=== PATIENT | female | born 1955 | race Caucasian/White ===

== ENCOUNTER 2019-01-05 17:03 | Inpatient (IN) ==
[2019-01-05] MEDS ORDERED: *HR* HYDROmorphone (PF) 1 MG/ML SYRINGE ONE (17:27)
[2019-01-05] MEDS ORDERED: *HR* HYDROmorphone (PF) 1 MG/ML SYRINGE IVP STA (17:32)
[2019-01-05] MEDS ORDERED: Ondansetron 4 MG/2 ML VIAL IVP STA (17:32)
[2019-01-05] MEDS ORDERED: KETAMINE IVPB STA (17:33)
[2019-01-05] MEDS ORDERED: SODIUM CHLORIDE 0.9% IVPB STA (17:33)
--- NOTE | 2019-01-05 17:37 | Emergency Department Note ---
Disposition Clinical Impression: Fracture of femur Qualifiers: Encounter type: initial encounter Femur location: neck, unspecified portion Fracture type: closed Laterality: left Qualified Code(s): S72.002A - Fracture of unspecified part of neck of left femur, initial encounter for closed fracture Disposition: Admitted As Inpatient Condition: Good Forms: ED Satisfaction Letter Time of Disposition: 20:04 General Adult HPI - General Chief complaint: ED Extremity Injury, Lower Stated complaint: hip pain Time Seen by Provider: 01/05/19 17:09 Nursing Notes Reviewed: Yes Vital Signs Reviewed: Yes - History of Present Illness HPI Narrative: Female patient percent tumor department after sustaining a ground-level fall. She was walking her dogs and the one dog and drug her. She denies striking her head. She denies any loss of consciousness. She states she is not on any blood thinners. She reports left lower extremity pain. States it started immediately after the fall. Does have a history of surgery to her lower back. Reports some low back pain as well. Patient came in on a long spine board with a sheet tied around her hips. Pain Scale: 8 - Related Data Home Medications Medication Instructions Recorded Confirmed Estradiol [Estrace] 0.5 mg PO QAM 06/15/15 07/05/15 Levothyroxine [Synthroid] 125 mcg PO QAM 06/15/15 07/05/15 Losartan [Cozaar] 100 mg PO QAM 06/15/15 07/05/15 TraZODone 50 mg PO HS 06/15/15 07/05/15 BuPROPion [Wellbutrin] 100 mg PO 05/20/18 Fluticasone Propionate Nasal 50 mcg NS 05/20/18 [Flonase] Wellbutrin 05/20/18 Previous Rx's Medication Instructions Recorded Acetaminophen w/Cod 300-30 mg 1 tab PO Q6HR PRN #33 tablet 07/05/15 [Tylenol w/Codeine #3] Esomeprazole Magnesium [Nexium] 20 mg PO DAILY #30 capsule. 11/23/17 diazePAM [Valium] 5 mg PO BID PRN 3 Days #7 tablet 12/08/17 Dicyclomine [Bentyl] 10 mg PO QID PRN #30 capsule 07/01/18 Allergies Allergy/AdvReac Type Severity Reaction Status Date / Time clonazepam [From Klonopin] Allergy Rash Verified 05/07/18 09:42 atorvastatin [From Lipitor] AdvReac Muscle Pain Verified 05/07/18 09:42 moxifloxacin [From Avelox] AdvReac Anxiety Verified 05/07/18 09:42 All systems ED: reviewed and negative except as stated. Review of Systems: As Per HPI Constitutional: Denies: fever Cardiovascular: Denies: chest pain Respiratory: Denies: cough, dyspnea Gastrointestinal: Denies: abdominal pain, nausea, vomiting, diarrhea Musculoskeletal: Reports: back pain, other (Left leg pain) Integumentary: Reports: abrasion (The left lower external) Neurological: Denies: headache Past Medical History - Past Medical History Attestation: Yes The following information was validated with the patient. Source: patient Medical history: Reports: hyperlipidemia, hypertension, osteoporosis, thyroid disease, other Surgical history: Reports: breast surgery, cholecystectomy, hysterectomy, sinus surgery, thyroidectomy, other Psychiatric history: Reports: anxiety, depression, panic disorder - Social History Smoking Status: Never smoker Smokeless Tobacco Status: No Alcohol use: Reports: none Drug use: Reports: none Physical Exam - General General appearance: alert, in no apparent distress - Head Head exam: atraumatic, normocephalic, normal inspection - Eye Eye exam: Present: normal appearance, PERRL, EOMI - ENT ENT exam: normal exam, normal oropharynx, mucous membranes moist - Neck Neck exam: Present: normal inspection, full ROM, trachea midline - Chest Chest inspection: Present: normal inspection, symmetric chest wall rise - Respiratory Respiratory exam: Present: normal lung sounds bilaterally. Absent: respiratory distress, accessory muscle use - Cardiovascular Cardiovascular exam: Present: regular rate, normal rhythm, normal heart sounds - Abdominal Exam Abdominal exam: Present: soft, Non-Tender. Absent: tenderness, distention, guarding, rebound, rigidity, organomegaly, Fraser's sign, Rovsing's sign, tenderness at McBurney's Point - Expanded Upper Extremity Exam Shoulder exam: Present: normal inspection, full ROM Arm exam: Present: full ROM, tenderness (Mild tenderness to the left elbow. No deformity noted. No ecchymosis.). Absent: deformity Elbow exam: Present: normal inspection, full ROM Forearm/Wrist exam: Present: normal inspection, full ROM Hand exam: Present: normal inspection, full ROM Vascular exam: Normal: capillary refill, radial pulse - Expanded Lower Extremity Exam Hip/Pelvis exam: Present: tenderness (Significant tenderness to the left hip.), deformity (To the proximal aspect of the left femur area.) Upper leg exam: Present: swelling (Proximal left femur), abrasion (Lateral left leg.) Knee exam: Present: tenderness (To palpation of left knee no swelling or crepitus noted. No deformity.). Absent: deformity Lower leg exam: Present: normal inspection, full ROM Ankle exam: Present: tenderness (To palpation of left ankle.) - Back Exam Back exam: Present: other (There are no step-offs or deformities noted to the cervical thoracic or lumbar spine. Patient does have some mild tenderness however to the lumbar region.) - Neurological Exam Neurological exam: Present: alert, oriented X3 - Psychiatric Psychiatric exam: Present: normal affect, normal mood - Skin Skin exam: Present: warm, dry, intact, normal color. Absent: rash, cyanosis, diaphoresis Course Course Narrative: On initial exam patient is alert and oriented 3 at this time. Denies any loss of consciousness. Mentating appropriately. Pupils are equal and reactive. No respirator distress this clear lung sounds bilaterally. Patient has strong pulses in all 4 extremities. Does have significant tenderness to palpation of the left hip and left femur area. There is what appears to be bony deformity of the proximal aspect of the left femur. Again she has good pulses and sensation distal to this extremity injury. Patient denies any pain to palpation over midline cervical and thoracic spine. She does have some tenderness to palpation of her high lumbar spine. There are no step-offs or deformity noted throughout her spinal exam. Again patient has significant pain to the left hip area. No ecchymosis noted at this time. No previous injury to this extremity. No other signs of trauma noted. Her abdomen is soft nontender nondistended. Patient states that she has had her tetanus shot within the past 3 years. - Reevaluation(s) Reevaluation #1: Patient with a right femoral neck fracture. No other acute signs of fractures. Patient mentating properly. We will perform a left femoral nerve block to help alleviate patient's pain and admit to the hospitalist. - Consultations Consultation #1: I spoke with Dr. Mark with orthopedics. He is requesting we admit to the [facility] and he does not pursue patient going to surgery tonight. Time: 19:57 Consultation #2: Dr Jain accepted Pt in stable condition. Time: 20:04 Vital Signs Temperature 99.2 F 01/05/19 17:06 Pulse Rate 76 01/05/19 17:06 Respiratory Rate 17 01/05/19 17:06 Blood Pressure 141/84 01/05/19 17:06 O2 Sat by Pulse Oximetry 98 01/05/19 17:06 Temperature 99.2 F 01/05/19 17:06 Pulse Rate 76 01/05/19 17:06 Respiratory Rate 17 01/05/19 17:06 Blood Pressure 141/84 01/05/19 17:06 O2 Sat by Pulse Oximetry 98 01/05/19 17:06 Oxygen Delivery Oxygen Delivery Room Air Procedures - Nerve Block Nerve Block 1 Consent Obtained: verbal consent Local Anesthetic: lidocaine 1%, bupivacaine 0.5% Amount of anesthesia used (mL): 10 Side: left Nerve Blocks: femoral Procedure Successful: Yes Patient Tolerated Procedure: well Complications: none Additional Comments: Supervised by Dr. kerr. Procedure tolerated well. No complications noted. We did have to advance the needle with the probe in a transverse plane secondary to patient's positioning. Medical Decision Making - Medical Records Medical records reviewed: Yes I reviewed the patient's medical records. - Lab Data Lab results reviewed: Yes I reviewed the patient's lab results. Result diagrams: 01/05/19 18:46 Lab Results 01/05/19 Range/Units 18:46 WBC 7.2 (4.3-11.1) K/mcL RBC 4.28 (3.82-4.97) M/mcL Hgb 13.1 (11.5-15.4) g/dL Hct 38.8 (35.3-44.9) % MCV 90.7 (83.0-100.0) fL MCH 30.6 (28.0-33.3) pg MCHC 33.8 (31.6-35.5) g/dL RDW 12.9 (11.5-14.5) % Plt Count 197 (140-400) K/mcL MPV 10.2 (9.4-12.4) fL Immature Gran % 0.3 (0-4) % Seg Neutrophils % 76.8 % Lymphocytes % 17.1 % Monocytes % 4.3 % Eosinophils % 1.1 % Basophils % 0.4 % Neutrophils # 5.5 (1.6-8.9) K/mcL Lymphocytes # 1.2 (0.6-4.6) K/mcL Monocytes # 0.3 (0.0-1.3) K/mcL Eosinophils # 0.1 (0.0-0.6) K/mcL Basophils # 0.0 (0.0-0.2) K/mcL - Radiology Data Radiology results reviewed: Yes I reviewed the patient's radiology results. Ankle X-Ray 01/05/19 17:28 IMPRESSION: Left femur: Suggestion of subcapital femoral neck fracture. Recommend dedicated radiographs of the left hip, or CT examination of the left hip if radiographs cannot be performed. Left knee: No acute abnormality. Left tibia and fibula: Mild swelling without fracture. Left ankle: Lateral soft tissue swelling without fracture. D/ / Hubert Oakes MD / Hubert Oakes MD Interpreting Provider: Hubert Oakes MD Femur X-Ray 01/05/19 17:28 IMPRESSION: Left femur: Suggestion of subcapital femoral neck fracture. Recommend dedicated radiographs of the left hip, or CT examination of the left hip if radiographs cannot be performed. Left knee: No acute abnormality. Left tibia and fibula: Mild swelling without fracture. Left ankle: Lateral soft tissue swelling without fracture. D/ / Hubert Oakes MD / Hubert Oakes MD Interpreting Provider: Hubert Oakes MD Knee X-Ray 01/05/19 17:28 IMPRESSION: Left femur: Suggestion of subcapital femoral neck fracture. Recommend dedicated radiographs of the left hip, or CT examination of the left hip if radiographs cannot be performed. Left knee: No acute abnormality. Left tibia and fibula: Mild swelling without fracture. Left ankle: Lateral soft tissue swelling without fracture. D/ / Hubert Oakes MD / Hubert Oakes MD Interpreting Provider: Hubert Oakes MD Lumbar Spine CT 01/05/19 17:28 IMPRESSION: No acute osseous abnormality on CT lumbar spine. Unchanged sequela from L3-L5 transpedicular spinal fixation, with slight anterolisthesis L4 on L5. Mild bilaterally symmetrical SI joint osteoarthritis. D/ / Roel Cali / Roel Cali Interpreting Provider: Roel Cali Pelvis CT 01/05/19 17:28 IMPRESSION: 1. Normal left hip alignment with an acute subcapital femoral neck fracture with mild impaction, displacement, and angulation. 2. No significant soft tissue hematoma. D/ / 01/05/2019 19:00:10 Jero Doe MD / carmina Interpreting Provider: Jero Doe MD Tibia/Fibula X-Ray 01/05/19 17:28
--- NOTE | 2019-01-05 17:38 | Emergency Department Note ---
Disposition Clinical Impression: Fracture of femur Qualifiers: Encounter type: initial encounter Femur location: neck, unspecified portion Fracture type: closed Laterality: left Qualified Code(s): S72.002A - Fracture of unspecified part of neck of left femur, initial encounter for closed fracture Disposition: Admitted As Inpatient Condition: Good Forms: ED Satisfaction Letter Time of Disposition: 20:04 General Adult HPI - General Chief complaint: ED Extremity Injury, Lower Stated complaint: hip pain Time Seen by Provider: 01/05/19 17:09 - History of Present Illness Pain Scale: 8 - Related Data Home Medications Medication Instructions Recorded Confirmed Estradiol [Estrace] 0.5 mg PO QAM 06/15/15 07/05/15 Levothyroxine [Synthroid] 125 mcg PO QAM 06/15/15 07/05/15 Losartan [Cozaar] 100 mg PO QAM 06/15/15 07/05/15 TraZODone 50 mg PO HS 06/15/15 07/05/15 BuPROPion [Wellbutrin] 100 mg PO 05/20/18 Fluticasone Propionate Nasal 50 mcg NS 05/20/18 [Flonase] Wellbutrin 05/20/18 Previous Rx's Medication Instructions Recorded Acetaminophen w/Cod 300-30 mg 1 tab PO Q6HR PRN #33 tablet 07/05/15 [Tylenol w/Codeine #3] Esomeprazole Magnesium [Nexium] 20 mg PO DAILY #30 capsule. 11/23/17 diazePAM [Valium] 5 mg PO BID PRN 3 Days #7 tablet 12/08/17 Dicyclomine [Bentyl] 10 mg PO QID PRN #30 capsule 07/01/18 Allergies Allergy/AdvReac Type Severity Reaction Status Date / Time clonazepam [From Klonopin] Allergy Rash Verified 05/07/18 09:42 atorvastatin [From Lipitor] AdvReac Muscle Pain Verified 05/07/18 09:42 moxifloxacin [From Avelox] AdvReac Anxiety Verified 05/07/18 09:42 Past Medical History - Past Medical History Medical history: Reports: hyperlipidemia, hypertension, osteoporosis, thyroid disease, other Surgical history: Reports: breast surgery, cholecystectomy, hysterectomy, sinus surgery, thyroidectomy, other Psychiatric history: Reports: anxiety, depression, panic disorder - Social History Smoking Status: Never smoker Smokeless Tobacco Status: No Alcohol use: Reports: none Drug use: Reports: none Physical Exam - General General appearance: alert, in no apparent distress Course Vital Signs Temperature 99.2 F 01/05/19 17:06 Pulse Rate 76 01/05/19 17:06 Respiratory Rate 17 01/05/19 17:06 Blood Pressure 141/84 01/05/19 17:06 O2 Sat by Pulse Oximetry 98 01/05/19 17:06 Temperature 99.2 F 01/05/19 17:06 Pulse Rate 80 01/05/19 20:24 Respiratory Rate 15 01/05/19 20:24 Blood Pressure 141/73 01/05/19 20:24 O2 Sat by Pulse Oximetry 98 01/05/19 20:24 Oxygen Delivery Oxygen Delivery Nasal Cannula Medical Decision Making - Lab Data Result diagrams: 01/05/19 18:46 01/05/19 18:46 Lab Results 01/05/19 01/05/19 Range/Units 18:46 18:46 WBC 7.2 (4.3-11.1) K/mcL RBC 4.28 (3.82-4.97) M/mcL Hgb 13.1 (11.5-15.4) g/dL Hct 38.8 (35.3-44.9) % MCV 90.7 (83.0-100.0) fL MCH 30.6 (28.0-33.3) pg MCHC 33.8 (31.6-35.5) g/dL RDW 12.9 (11.5-14.5) % Plt Count 197 (140-400) K/mcL MPV 10.2 (9.4-12.4) fL Immature Gran % 0.3 (0-4) % Seg Neutrophils % 76.8 % Lymphocytes % 17.1 % Monocytes % 4.3 % Eosinophils % 1.1 % Basophils % 0.4 % Neutrophils # 5.5 (1.6-8.9) K/mcL Lymphocytes # 1.2 (0.6-4.6) K/mcL Monocytes # 0.3 (0.0-1.3) K/mcL Eosinophils # 0.1 (0.0-0.6) K/mcL Basophils # 0.0 (0.0-0.2) K/mcL Sodium 142 (136-145) mEq/L Potassium 3.9 (3.5-5.1) mEq/L Chloride 104 (98-107) mEq/L Carbon Dioxide 30 H (23-29) mEq/L BUN 21 (8-23) mg/dL Creatinine 0.88 (0.60-1.20) mg/dL Est GFR ( Amer) > 60 (> 60) Est GFR (Non-Af Amer) > 60 (> 60) BUN/Creatinine Ratio 24 (6-26) Glucose 97 (70-105) mg/dL Calculated Osmolality 297 (280-300) Calcium 8.6 (8.6-10.3) mg/dL Attestation Statement - Attestation Attestation: I examined this patient and my medical decision-making was reviewed with the Resident Physician. I agree with the documented findings, disposition and treatment plan as described except to the extent set forth below. Patient presents after a fall and being dragged by her dog. Significant pain to her hip and proximal femur. Also is tender at the thoracolumbar junction and at the lumbosacral junction. No step-off or crepitus. Meets NEXUS criteria for clinical C-spine clearance, and suspicion for cervical spine injury is low based on mechanism. No other abnormal findings on exam. I was present for Dr. Pope' ultrasound guided nerve block.
[2019-01-05] MEDS ORDERED: Lidocaine -MPF 1% 5 ML AMPUL INFILT STA (19:23)
[2019-01-05 19:46] LABS: Basophils % 0.4 %; Eosinophils # 0.1 K/mcL (0.0-0.6); Eosinophils % 1.1 %; Hematocrit 38.8 % (35.3-44.9); Hemoglobin 13.1 g/dL (11.5-15.4); Immature Granulocytes % 0.3 % (0-4); Lymphocytes # 1.2 K/mcL (0.6-4.6); Lymphocytes % 17.1 %; Mean Corpuscular HGB Conc 33.8 g/dL (31.6-35.5); Mean Corpuscular Hemoglobin 30.6 pg (28.0-33.3); Mean Corpuscular Volume 90.7 fL (83.0-100.0); Mean Platelet Volume 10.2 fL (9.4-12.4); Monocytes # 0.3 K/mcL (0.0-1.3); Monocytes % 4.3 %; Neutrophils # 5.5 K/mcL (1.6-8.9); Platelet Count 197 K/mcL (140-400); Red Blood Count 4.28 M/mcL (3.82-4.97); Red Cell Distribution Width 12.9 % (11.5-14.5); Segmented Neutrophils % 76.8 %; White Blood Count 7.2 K/mcL (4.3-11.1)
[2019-01-05 20:03] LABS: BUN/Creatinine Ratio 24 (6-26); Blood Urea Nitrogen 21 mg/dL (8-23); Calcium 8.6 mg/dL (8.6-10.3); Carbon Dioxide 30 mEq/L (23-29); Chloride 104 mEq/L (98-107); Glucose 97 mg/dL (70-105); Osmolality,Calculated 297 (280-300); Potassium 3.9 mEq/L (3.5-5.1); Sodium 142 mEq/L (136-145); eGFR For African Americans > 60 (> 60); eGFR For Non-African Americans > 60 (> 60)
--- NOTE | 2019-01-05 21:10 | Internal Med History&Physical ---
Date of Encounter: 01/05/19 Time of Encounter: 21:10 Internal Medicine - H&P: HPI Chief complaint: Fall History of present illness: Ms. Song is a 63 year old female who presented to the ER after she sustained a fall without reported loss of consciousness. The patient presented with severe left lower extremity pain that started immediately after she sustained a fall. The patient was evaluated by the ER and imaging study was suggestive of acute subcapital femoral neck fracture with mild impaction, displacement, and angulation. He was consulted and their questions the patient will be admitted to the hospitalist service, we will see the patient in a.m. for further evaluation and management Past Med Surg Social Fam HX - Past Medical History Medical history: hyperlipidemia, hypertension, osteoporosis, thyroid disease, other Additional medical history: sleep apnea Psychiatric history: anxiety, depression, panic disorder - Past Surgical History Surgical History: breast surgery, cholecystectomy, hysterectomy, sinus surgery, thyroidectomy, other Additional surgical history: back - Social History Smoking Status: Never smoker Smokeless Tobacco Status: No Alcohol use: none Drug use: none - Family History Mother Hx Family Cardiac Disorders: Yes (htn) Hx Family Cancer: Yes (lung) Father Hx Family Cardiac Disorders: Yes (heart attack htn) Internal Medicine - H&P: Meds diazePAM [Valium] 5 mg PO BID PRN 3 Days #7 tablet 12/08/17 [Rx] BuPROPion SR (12 HR) [Wellbutrin SR] 200 mg PO QAM #0 05/20/18 [History] Escitalopram [Lexapro] 20 mg PO DAILY 01/05/19 [History] amLODIPine [Norvasc] 10 mg PO DAILY 01/05/19 [History] Buspirone HCl [Buspar] 22.5 mg PO DAILY 01/07/19 [History] Levothyroxine Sodium 112 mcg PO QAM 01/07/19 [History] Trazodone HCl 100 mg PO HS PRN 01/07/19 [History] Allergy/AdvReac Type Severity Reaction Status Date / Time clonazepam [From Klonopin] Allergy Anxiety Verified 01/07/19 10:20 atorvastatin [From Lipitor] AdvReac See Verified 01/07/19 10:20 Comments moxifloxacin [From Avelox] AdvReac Rash Verified 01/07/19 10:20 All Systems PM: A 10-system review of systems was performed and is negative for pertinent findings except as documented above in the HPI. - Constitutional Constitutional: no chills, no fever(s), no night sweats - EENT Eyes: no change in vision, no discharge, no pain, no photophobia Ears: no ear discharge, no ear pain, no tinnitus Nose, mouth and throat: no dysphagia, no nasal discharge, no neck pain, no sore throat - Cardiovascular Cardiovascular ROS IM: no chest pain, no diaphoresis, no dyspnea, no lightheadedness, no palpitations, no syncope - Respiratory Respiratory: no cough, no dyspnea, no wheezing, no excessive phlegm production - Gastrointestinal Gastrointestinal: no abdominal pain, no diarrhea, no hematemesis, no hematoch ezia, no melena, no nausea, no vomiting - Constitutional Vitals: Temp Pulse Resp BP Pulse Ox 99.2 F 80 15 141/73 98 01/05/19 17:06 01/05/19 20:24 01/05/19 20:24 01/05/19 20:24 01/05/19 20:24 General appearance: Present: A&O X 3 Exam: ` - Head Head exam: Present: atraumatic, normocephalic - Neck Neck exam general surgery: Present: supple, trachea midline. Absent: lymphadenopathy - Respiratory Respiratory exam: Present: CTAB. Absent: accessory muscle use, rales, rhonchi, wheezes - Cardiovascular Cardiovascular exam: Present: RRR, +S1, +S2. Absent: diastolic murmur, gallop, rubs, systolic murmur - GI/Abdominal GI/Abdominal exam: Present: normal bowel sounds, soft, no peritoneal signs. Absent: distended, tenderness - Extremities Exam Extremities exam: Present: warm, radial pulses palpable and symmetrical. Absent: calf tenderness, cyanotic, pedal edema Internal Med - H&P Results - Labs CBC & Chem 7: 01/07/19 04:17 01/07/19 04:17 Labs: Short CBC 01/05/19 Range/Units 18:46 WBC 7.2 (4.3-11.1) K/mcL Hgb 13.1 (11.5-15.4) g/dL Hct 38.8 (35.3-44.9) % Plt Count 197 (140-400) K/mcL Neutrophils # 5.5 (1.6-8.9) K/mcL BMP 01/05/19 18:46 Sodium 142 Potassium 3.9 Chloride 104 Carbon Dioxide 30 H BUN 21 Creatinine 0.88 Glucose 97 Calcium 8.6 - Impressions ITS Impressions Ankle X-Ray 01/05/19 17:28 IMPRESSION: Left femur: Suggestion of subcapital femoral neck fracture. Recommend dedicated radiographs of the left hip, or CT examination of the left hip if radiographs cannot be performed. Left knee: No acute abnormality. Left tibia and fibula: Mild swelling without fracture. Left ankle: Lateral soft tissue swelling without fracture. D/ / Hubert Oakes MD / Hubert Oakes MD Interpreting Provider: Hubert Oakes MD Femur X-Ray 01/05/19 17:28 IMPRESSION: Left femur: Suggestion of subcapital femoral neck fracture. Recommend dedicated radiographs of the left hip, or CT examination of the left hip if radiographs cannot be performed. Left knee: No acute abnormality. Left tibia and fibula: Mild swelling without fracture. Left ankle: Lateral soft tissue swelling without fracture. D/ / Hubert Oakes MD / Hubert Oakes MD Interpreting Provider: Hubert Oakes MD Knee X-Ray 01/05/19 17:28 IMPRESSION: Left femur: Suggestion of subcapital femoral neck fracture. Recommend dedicated radiographs of the left hip, or CT examination of the left hip if radiographs cannot be performed. Left knee: No acute abnormality. Left tibia and fibula: Mild swelling without fracture. Left ankle: Lateral soft tissue swelling without fracture. D/ / Hubert Oakes MD / Hubert Oakes MD Interpreting Provider: Hubert Oakes MD Lumbar Spine CT 01/05/19 17:28 IMPRESSION: No acute osseous abnormality on CT lumbar spine. Unchanged sequela from L3-L5 transpedicular spinal fixation, with slight anterolisthesis L4 on L5. Mild bilaterally symmetrical SI joint osteoarthritis. D/ / Roel Cali / Roel Cali Interpreting Provider: Roel Cali Pelvis CT 01/05/19 17:28 IMPRESSION: 1. Normal left hip alignment with an acute subcapital femoral neck fracture with mild impaction, displacement, and angulation. 2. No significant soft tissue hematoma. D/ / 01/05/2019 19:00:10 Jero Doe MD / carmina Interpreting Provider: Jero Doe MD Tibia/Fibula X-Ray 01/05/19 17:28 IMPRESSION: Left femur: Suggestion of subcapital femoral neck fracture. Recommend dedicated radiographs of the left hip, or CT examination of the left hip if radiographs cannot be performed. Left knee: No acute abnormality. Left tibia and fibula: Mild swelling without fracture. Left ankle: Lateral soft tissue swelling without fracture. D/ / Hubert Oakes MD / Hubert Oakes MD Interpreting Provider: Hubert Oakes MD - Assessment and Plan (1) Fracture of femur Current Visit: Yes Status: Acute Assessment and plan: Orth was consulted and they will see the patient in a.m. for further evaluation and management Qualifiers: Encounter type: initial encounter Femur location: neck, unspecified portion Fracture type: closed Laterality: left Qualified Code(s): S72.002A - Fracture of unspecified part of neck of left femur, initial encounter for closed fracture (2) DVT prophylaxis Current Visit: Yes Status: Acute Assessment and plan: We will start the patient on heparin 5000 bid (3) Hypertension Current Visit: Yes Status: Acute Assessment and plan: We will continue antihypertensive regimen, continue to monitor blood pressure and adjust regimen accordingly if indicated Qualifiers: Qualified Code(s): I10 - Essential (primary) hypertension (4) Hyperlipidemia Current Visit: Yes Status: Acute Assessment and plan: We will continue home statin Qualifiers: Qualified Code(s): E78.5 - Hyperlipidemia, unspecified (5) Hypothyroidism Current Visit: Yes Status: Acute Assessment and plan: we will continue home thyroxine Qualifiers: Qualified Code(s): E03.9 - Hypothyroidism, unspecified - Time Spent With Patient Total time spent is greater than 50% in coordination of care (as documented) at patient's floor/unit and/or counseling patient:
[2019-01-05] MEDS ORDERED: *HR* HYDROmorphone (PF) 1 MG/ML SYRINGE IVP ONE (21:32)
[2019-01-06] MEDS ORDERED: Naloxone 0.4 MG/ML INJ IVP PRN ×2 (00:28→17:37)
[2019-01-06] MEDS ORDERED: *HR* HYDROcodone/Acet 5/325 mg TABLET PO PRN (00:28)
[2019-01-06] MEDS ORDERED: Ondansetron 4 MG/2 ML VIAL IVP PRN ×2 (00:28→17:37)
[2019-01-06] MEDS: 0.9 % Sodium Chloride 1,000 ML IVC SCH ×2 (01:01→08:29)
[2019-01-06] MEDS: *HR* HYDROmorphone (PF) 1 MG/ML SYRINGE IVP PRN ×4 (01:01→17:00)
[2019-01-06 01:36] LABS: Bilirubin,Urine Negative (Negative); Blood,Urine Negative (Negative); Clarity,Urine Cloudy (Clear); Color,Urine Yellow (Yellow); Glucose,Urine (UA) Normal (Normal); Ketones,Urine Negative (Negative); Leukocyte Esterase,Urine Negative (Negative); Nitrite,Urine Negative (Negative); Protein,Urine Negative (Neg-Trace); Specific Gravity,Urine 1.016 (1.010-1.025); Urobilinogen,Urine Normal (Normal)
[2019-01-06 01:37] LABS: Bacteria,Urine None Seen per hpf (None-Few); Hyaline Casts,Urine Few per lpf (None-Few); Squamous Epithelial Cell,Urine Many per lpf (None-Few); WBC,Urine 0-3 per hpf (0-3)
[2019-01-06 01:52] LABS: Mucus,Urine Moderate (Few); RBC,Urine 0-3 per hpf (0-3)
[2019-01-06] MEDS ORDERED: diazePAM 5 MG TABLET PO PRN ×2 (04:04→17:37)
[2019-01-06] MEDS ORDERED: *HR* Acetaminophen w/Cod 300-30 mg 1 TAB TABLET PO PRN (04:04)
[2019-01-06 05:00] LABS: Basophils % 0.3 %; Eosinophils # 0.1 K/mcL (0.0-0.6); Eosinophils % 0.9 %; Hematocrit 37.7 % (35.3-44.9); Hemoglobin 12.4 g/dL (11.5-15.4); Immature Granulocytes % 0.4 % (0-4); Lymphocytes # 0.7 K/mcL (0.6-4.6); Lymphocytes % 8.6 %; Mean Corpuscular HGB Conc 32.9 g/dL (31.6-35.5); Mean Corpuscular Hemoglobin 30.2 pg (28.0-33.3); Mean Corpuscular Volume 91.7 fL (83.0-100.0); Monocytes # 0.2 K/mcL (0.0-1.3); Monocytes % 2.9 %; Neutrophils # 6.7 K/mcL (1.6-8.9); Platelet Count 164 K/mcL (140-400); Red Blood Count 4.11 M/mcL (3.82-4.97); Red Cell Distribution Width 12.8 % (11.5-14.5); Segmented Neutrophils % 86.9 %; White Blood Count 7.7 K/mcL (4.3-11.1)
[2019-01-06 05:07] LABS: Prothrombin Time 11.7 Seconds (9.4-12.1)
[2019-01-06 05:09] LABS: Activated Partial Thrombo Time 26.8 Seconds (26.0-36.0)
[2019-01-06 05:18] LABS: Alanine Aminotransferase 91 Units/L (7-52); Albumin 3.8 g/dL (3.5-5.7); Albumin/Globulin Ratio 1.8 (1.1-2.2); Alkaline Phosphatase 85 Units/L (34-104); Aspartate Amino Transferase 136 Units/L (13-39); BUN/Creatinine Ratio 20 (6-26); Bilirubin,Total 1.3 mg/dL (0.3-1.0); Blood Urea Nitrogen 17 mg/dL (8-23); Calcium 8.6 mg/dL (8.6-10.3); Carbon Dioxide 31 mEq/L (23-29); Chloride 103 mEq/L (98-107); Chol/HDL Ratio 2.6 (0-4.9); Cholesterol 157 mg/dL (< 200); Globulin 2.1 g/dL (2.4-3.5); Glucose 118 mg/dL (70-105); HDL Cholesterol 61 mg/dL (40-59); LDL Cholesterol,Calculated 78 mg/dL (0-99); Magnesium 1.8 mg/dL (1.6-2.6); Osmolality,Calculated 289 (280-300); Phosphorous 3.1 mg/dL (2.7-4.5); Potassium 4.8 mEq/L (3.5-5.1); Sodium 138 mEq/L (136-145); Total Protein 5.9 g/dL (6.4-8.9); Triglycerides 90 mg/dL (< 150); eGFR For African Americans > 60 (> 60); eGFR For Non-African Americans > 60 (> 60)
--- NOTE | 2019-01-06 07:40 | Orthopedic Consult Note ---
Date of Encounter: 01/06/19 Time of Encounter: 07:36 History of Present Illness Chief complaint: Left hip pain HPI: Ms. 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 She had immediate left hip pain and was able to ambulate. She was brought to [facility] x-rays and CT scan revealed evidence of a left femoral neck fracture. She is admitted for definitive management. Patient denies any other injuries. Denies neurovascular complaints. I reviewed the patient's completed history and physical examination as well as the medical record. Pertinent orthopedic examination reveals no significant shortening or external rotation. Patient does rest with a slightly hip and knee flexed position. Distal neurosensory exam is normal. X-rays and CT scan reveal a minimally displaced, valgus impacted left subcapital femoral neck fracture. Impression: Left femoral neck fracture, subcapital Recommendation: Discussed the treatment options at length with the patient. This could include observation with nonweightbearing, percutaneous fixation or hemiarthroplasty or even total hip arthroplasty. We discussed the risks and benefits of each approach. Discussed and recommended the percutaneous screw fixation approach as this would save her femoral head and minimize surgical intervention though there is a risk of nonunion or avascular necrosis and later surgical intervention required to correct this. Patient understands and agrees. We discussed all the potential risks and complications including bleeding, infection, blood clots, nerve injury, stiffness, malunion and nonunion as well as the possibility of leg length or rotational deformities. Patient has a signed informed consent for the surgery. Anticipate proceeding with surgery today when operating time is available. Thank you for allowing me to see and care for Mrs. Song. Sincerely, Vamsi Mark,DO Past Med Surg Social Fam HX - Past Medical History Medical history: hyperlipidemia, hypertension, osteoporosis, thyroid disease, other Additional medical history: sleep apnea Psychiatric history: anxiety, depression, panic disorder - Past Surgical History Surgical History: breast surgery, cholecystectomy, hysterectomy, sinus surgery, thyroidectomy, other Additional surgical history: back - Social History Smoking Status: Never smoker Smokeless Tobacco Status: No Alcohol use: none Drug use: none - Family History Mother Hx Family Cardiac Disorders: Yes (htn) Hx Family Cancer: Yes (lung) Father Hx Family Cardiac Disorders: Yes (heart attack htn) Medications and Allergies Levothyroxine [Synthroid] 125 mcg PO QAM 06/15/15 [History] TraZODone 50 mg PO HS 06/15/15 [History] Acetaminophen w/Cod 300-30 mg [Tylenol w/Codeine #3] 1 tab PO Q6HR PRN #33 tablet 07/05/15 [Rx] diazePAM [Valium] 5 mg PO BID PRN 3 Days #7 tablet 12/08/17 [Rx] Wellbutrin 100 mg PO BID 05/20/18 [History] Buspirone HCl [Buspar] 22.5 mg PO BID 01/05/19 [History] Escitalopram [Lexapro] 20 mg PO DAILY 01/05/19 [History] Valsartan [Diovan] 160 mg PO DAILY 01/05/19 [History] amLODIPine [Norvasc] 10 mg PO DAILY 01/05/19 [History] Allergy/AdvReac Type Severity Reaction Status Date / Time clonazepam [From Klonopin] Allergy Rash Verified 05/07/18 09:42 atorvastatin [From Lipitor] AdvReac Muscle Pain Verified 05/07/18 09:42 moxifloxacin [From Avelox] AdvReac Anxiety Verified 05/07/18 09:42 All Systems Reviewed: The remainder of the systems were reviewed and are negative Physical Exam - Constitutional Vitals: Temp Pulse Resp BP Pulse Ox 98.4 F 67 16 138/67 95 01/06/19 06:39 01/06/19 06:39 01/06/19 06:39 01/06/19 06:39 01/06/19 06:39 Results - Labs Result Diagrams: 01/06/19 04:22 01/06/19 04:22 Labs: Abnormal lab results Carbon Dioxide 31 mEq/L (23-29) H 01/06/19 04:22 Glucose 118 mg/dL (70-105) H 01/06/19 04:22 1.3 mg/dL (0.3-1.0) H 01/06/19 04:22 AST 136 Units/L (13-39) H 01/06/19 04:22 ALT 91 Units/L (7-52) H 01/06/19 04:22 5.9 g/dL (6.4-8.9) L 01/06/19 04:22 2.1 g/dL (2.4-3.5) L 01/06/19 04:22 61 mg/dL (40-59) H 01/06/19 04:22 Cloudy (Clear) A 01/06/19 01:29 Ur Squamous Epith Cells Many per lpf (None-Few) H 01/06/19 01:29 Moderate (Few) H 01/06/19 01:29 H & H 01/05/19 01/06/19 Range/Units 18:46 04:22 Hgb 13.1 12.4 (11.5-15.4) g/dL Hct 38.8 37.7 (35.3-44.9) % All other labs normal. - Diagnostic results Hip AP/Lateral x-ray: image reviewed Hip CT: image reviewed Consult Discharge Plan - Plan Referrals: Kerry Oseguera, VAT OVERHAULER [Primary Care Provider] -
[2019-01-06] MEDS ORDERED: amLODIPine 5 MG TABLET PO SCH (09:00)
[2019-01-06] MEDS ORDERED: Valsartan 80 MG TABLET PO SCH (09:00)
[2019-01-06] MEDS ORDERED: Acetaminophen IV 1,000 MG/100 ML INFUS..BTL IVPB ONE (10:29)
[2019-01-06] MEDS ORDERED: *HR* OxyCODONE Immed Rel 5 MG TABLET PO PRN ×2 (11:50)
--- NOTE | 2019-01-06 13:24 | Internal Med Progress Note ---
Hospitalist Progress Note - Encounter Date of Encounter: 01/06/19 Time of Encounter: 10:15 - Subjective Interval History: Patient complains of a severe tension type headache. Pain in her left hip is well controlled. No vision changes. No focal weakness. She is scheduled to undergo surgery later today with percutaneous hip pinning. - Exam Vitals: Temp Pulse Resp BP Pulse Ox 98.2 F 73 16 142/68 96 01/06/19 11:00 01/06/19 11:00 01/06/19 11:00 01/06/19 11:00 01/06/19 11:00 Exam: General: Patient is alert, moderate distress, oriented x 3 ENT: Mucous membranes moist Respiratory: Good respiratory effort. Normal breath sounds. No wheezing or crackles. Cardiovascular: Regular rate and rhythm. s1 and s2 normal No clicks, rubs, gallops, or murmurs. No pedal edema Abdomen: Abdomen is soft, nontender. Bowel sounds are present Musculoskeletal: Left hip tenderness Skin: warm, dry, intact. Neuro: Alert oriented x 3 normal cranial nerves, no focal deficits - Assessment and Plan (1) Fracture of femur Current Visit: Yes Status: Acute (2) Hypertension Current Visit: Yes Status: Acute (3) Hyperlipidemia Current Visit: Yes Status: Acute (4) Hypothyroidism Current Visit: Yes Status: Acute (5) DVT prophylaxis Current Visit: Yes Status: Acute DVT Prophylaxis: Will place patient on subcutaneous Lovenox after surgery - Summary of Assessment and Plan Summary of Assessment and Plan: Acute subcapital left femur fracture: Continue supportive care. Pain control. Surgery scheduled for later today. Essential hypertension: Continue home medications. Continue to monitor blood pressure. Intractable headache: Tension-type. Symptomatic treatment. Hypothyroidism: Continue levothyroxine. Moderate risk for complications. - Time Spent with Patient Total time spent is greater than 50% in coordination of care (as documented) at patient's floor/unit and/or counseling patient: Internal Medicine: Result - Labs CBC & Chem 7: 01/06/19 04:22 01/06/19 04:22 Labs: Short CBC 01/05/19 01/06/19 Range/Units 18:46 04:22 WBC 7.2 7.7 (4.3-11.1) K/mcL Hgb 13.1 12.4 (11.5-15.4) g/dL Hct 38.8 37.7 (35.3-44.9) % Plt Count 197 164 (140-400) K/mcL Neutrophils # 5.5 6.7 (1.6-8.9) K/mcL BMP 01/05/19 01/06/19 18:46 04:22 Sodium 142 138 Potassium 3.9 4.8 Chloride 104 103 Carbon Dioxide 30 H 31 H BUN 21 17 Creatinine 0.88 0.83 Glucose 97 118 H Calcium 8.6 8.6 Liver Function 01/06/19 Range/Units 04:22 Total Bilirubin 1.3 H (0.3-1.0) mg/dL AST 136 H (13-39) Units/L ALT 91 H (7-52) Units/L Alkaline Phosphatase 85 (34-104) Units/L Albumin 3.8 (3.5-5.7) g/dL Urine 01/06/19 Range/Units 01:29 Urine Color Yellow (Yellow) Urine Clarity Cloudy A (Clear) Urine pH 6.0 (5.0-8.0) pH Units Ur Specific Willard 1.016 (1.010-1.025) Urine Protein Negative (Neg-Trace) mg/dL Urine Glucose (UA) Normal (Normal) mg/dL - ABG Interpretation ABG results: PT/INR, D-dimer PT 11.7 Seconds (9.4-12.1) 01/06/19 04:22 - Impressions Impressions Ankle X-Ray 01/05/19 17:28 IMPRESSION: Left femur: Suggestion of subcapital femoral neck fracture. Recommend dedicated radiographs of the left hip, or CT examination of the left hip if radiographs cannot be performed. Left knee: No acute abnormality. Left tibia and fibula: Mild swelling without fracture. Left ankle: Lateral soft tissue swelling without fracture. D/ / Hubert Oakes MD / Hubert Oakes MD Interpreting Provider: Hubert Oakes MD Femur X-Ray 01/05/19 17:28 IMPRESSION: Left femur: Suggestion of subcapital femoral neck fracture. Recommend dedicated radiographs of the left hip, or CT examination of the left hip if radiographs cannot be performed. Left knee: No acute abnormality. Left tibia and fibula: Mild swelling without fracture. Left ankle: Lateral soft tissue swelling without fracture. D/ / Hubert Oakes MD / Hubert Oakes MD Interpreting Provider: Hubert Oakes MD Knee X-Ray 01/05/19 17:28 IMPRESSION: Left femur: Suggestion of subcapital femoral neck fracture. Recommend dedicated radiographs of the left hip, or CT examination of the left hip if radiographs cannot be performed. Left knee: No acute abnormality. Left tibia and fibula: Mild swelling without fracture. Left ankle: Lateral soft tissue swelling without fracture. D/ / Hubert Oakes MD / Hubert Oakes MD Interpreting Provider: Hubert Oakes MD Lumbar Spine CT 01/05/19 17:28 IMPRESSION: No acute osseous abnormality on CT lumbar spine. Unchanged sequela from L3-L5 transpedicular spinal fixation, with slight anterolisthesis L4 on L5. Mild bilaterally symmetrical SI joint osteoarthritis. D/ / Roel Cali / Roel Cali Interpreting Provider: Roel Cali Pelvis CT 01/05/19 17:28 IMPRESSION: 1. Normal left hip alignment with an acute subcapital femoral neck fracture with mild impaction, displacement, and angulation. 2. No significant soft tissue hematoma. D/ / 01/05/2019 19:00:10 Jero oDe MD / carmina Interpreting Provider: Jero Doe MD Tibia/Fibula X-Ray 01/05/19 17:28 IMPRESSION: Left femur: Suggestion of subcapital femoral neck fracture. Recommend dedicated radiographs of the left hip, or CT examination of the left hip if radiographs cannot be performed. Left knee: No acute abnormality. Left tibia and fibula: Mild swelling without fracture. Left ankle: Lateral soft tissue swelling without fracture. D/ / Hubert Oakes MD / Hubert Oakes MD Interpreting Provider: Hubert Oakes MD Consult Discharge Plan - Plan Referrals: Kerry Oseguera, PROJECT DEVELOPMENT DIRECTOR [Primary Care Provider] - (1) Fracture of femur Qualifiers: Encounter type: initial encounter Femur location: neck, unspecified portion Fracture type: closed Laterality: left Qualified Code(s): S72.002A - Fracture of unspecified part of neck of left femur, initial encounter for closed fracture
[2019-01-06] MEDS ORDERED: *HR* Succinylcholine 200 MG/10 ML VIAL IVP ONE (14:43)
[2019-01-06] MEDS ORDERED: *HR* Propofol 200 MG/20 ML VIAL IVP ONE ×2 (14:43→16:12)
[2019-01-06] MEDS ORDERED: *HR* FentaNYL (PF) 100 MCG/2 ML VIAL ONE ×2 (14:43→16:12)
[2019-01-06] MEDS ORDERED: Lidocaine -MPF 2% 2 ML VIAL ONE (14:43)
[2019-01-06] MEDS ORDERED: Lidocaine -MPF 4% 5 ML AMPUL ONE (14:47)
--- NOTE | 2019-01-06 14:48 | Orthopedics Progress Note ---
Date of Encounter: 01/06/19 Time of Encounter: 14:40 Subjective Interval history: S: I did discuss the case with Dr. Mark. The patient had an injury yesterday after a fall causing a valgus impacted left femoral neck fracture. He was planning on doing a percutaneous pinning of the hip today, however he fell ill and asked if I would resume care the patient. I did evaluate the patient and héctor davis confirms the above history. She fell after being pulled by a dog on a leash. She had the acute onset of left hip pain which is sharp and achy and worse with use and movement and better with rest. She denies any other pain. She denies any numbness, tingling, or any other associated signs or symptoms or modifying factors. O: Afebrile on the vital signs are stable There is no shortening or rotation of the left hip. She does hold the thigh in slight flexion. I did not range the left hip due to her known fracture. No tenderness about the distal thigh, knee, ankle, or tib-fib region. She can dorsiflex and plantar flex ankle and toes and the foot is sensate and well- perfused. Diagnostic Imaging: I did personally review and interpret x-rays of the left femur as well as the CT scan of the pelvis which demonstrates a valgus impacted femoral neck fracture with minimal displacement. A: Left impacted femoral neck fracture P: I did have a long discussion with the patient regarding the diagnosis. Options include percutaneous screw fixation versus arthroplasty. After careful discussion of the risks and benefits, she did wish to proceed with percutaneous pinning of the left hip. I did discuss the risks of malunion, nonunion, avascular necrosis, painful hardware, and the need for arthroplasty in the future. She did understand the risks of surgery and did wish to proceed and consent was obtained. I have reviewed each of the pertinent components of this chart and any other pertinent medical component(s) including but not limited to pertinent application of the chief complaint, history of present illness, current medication, medical history, allergies, family history, medical history, surgical history, social history, review of systems, vital signs, and any other portion of the pertinent patient medical record directly or indirectly involved with this patient care that is pertinent based on my medical decision process. LAURA Nieto Objective Vital signs: Vital Signs Temp Pulse Resp BP Pulse Ox 01/06/19 11:00 98.2 F 73 16 142/68 96 01/06/19 06:39 98.4 F 67 16 138/67 95 01/06/19 04:03 98.5 F 68 18 133/66 93 01/05/19 23:18 96 01/05/19 21:56 78 16 136/67 96 01/05/19 20:24 80 15 141/73 98 01/05/19 17:06 99.2 F 76 17 141/84 98 Intake and Output 01/05/19 01/06/19 01/06/19 23:59 07:59 15:59 Intake Total 100.32 / 100.32 1000 / 1000 Output Total 200 / 200 Balance 100.32 / 100.32 800 / 800 Intake: IV Fluids 100.32 / 100.32 1000 / 1000 0.9 % Sodium Chloride 1,000 ML 1000 / 1000 @ 125 mls/hr IVC .Q8H [facility] Rx#: [id number] Ketamine 16 MG In 0.9 % Sodium 100.32 / 100.32 Chloride 100 ML @ 200 mls/hr IVPB ONCE STA Rx#:[id number] Output: Catheter 200 / 200 Other: Weight 82.1 kg - Labs CBC & BMP: 01/06/19 04:22 01/06/19 04:22 Labs: Abnormal lab results Carbon Dioxide 31 mEq/L (23-29) H 01/06/19 04:22 Glucose 118 mg/dL (70-105) H 01/06/19 04:22 1.3 mg/dL (0.3-1.0) H 01/06/19 04:22 AST 136 Units/L (13-39) H 01/06/19 04:22 ALT 91 Units/L (7-52) H 01/06/19 04:22 5.9 g/dL (6.4-8.9) L 01/06/19 04:22 2.1 g/dL (2.4-3.5) L 01/06/19 04:22 61 mg/dL (40-59) H 01/06/19 04:22 Cloudy (Clear) A 01/06/19 01:29 Ur Squamous Epith Cells Many per lpf (None-Few) H 01/06/19 01:29 Moderate (Few) H 01/06/19 01:29 Consult Discharge Plan - Plan Referrals: Kerry Oseguera, MICHAEL [Primary Care Provider] -
--- NOTE | 2019-01-06 14:50 | Anesthesia Evaluation PreOp ---
Date of Encounter: 01/06/19 Time of Encounter: 14:47 - Past History Planned Operation: Left Hip Percutaneous Pinning Cardiac History: HTN Pulmonary History: Denies Any Significant HX PIT SHOVELER History: Denies Any Significant HX Other Medical History: Thyroid, Other (depression) Anesthesia History: No Prior Anesthetic Complications, Past Anesthesia Alcohol Use: rarely Drug use: none Medications and Allergies Levothyroxine [Synthroid] 125 mcg PO QAM 06/15/15 [History] TraZODone 50 mg PO HS 06/15/15 [History] Acetaminophen w/Cod 300-30 mg [Tylenol w/Codeine #3] 1 tab PO Q6HR PRN #33 tablet 07/05/15 [Rx] diazePAM [Valium] 5 mg PO BID PRN 3 Days #7 tablet 12/08/17 [Rx] Wellbutrin 100 mg PO BID 05/20/18 [History] Buspirone HCl [Buspar] 22.5 mg PO BID 01/05/19 [History] Escitalopram [Lexapro] 20 mg PO DAILY 01/05/19 [History] Valsartan [Diovan] 160 mg PO DAILY 01/05/19 [History] amLODIPine [Norvasc] 10 mg PO DAILY 01/05/19 [History] Allergy/AdvReac Type Severity Reaction Status Date / Time clonazepam [From Klonopin] Allergy Rash Verified 05/07/18 09:42 atorvastatin [From Lipitor] AdvReac Muscle Pain Verified 05/07/18 09:42 moxifloxacin [From Avelox] AdvReac Anxiety Verified 05/07/18 09:42 - Meds/Allergy Pre-op Review Medications Reviewed: Yes Allergies Reviewed: Yes Beta Blockers on Current Med List: No Anesthesia Results - Labs 01/06/19 04:22 01/06/19 04:22 Laboratory Tests 01/06/19 04:22 PT 11.7 INR 1.0 APTT 26.8 - Imaging EKG: report reviewed (11/23/2017 SINUS RHYTHM INDETERMINATE AXIS POSSIBLE ANTERIOR MYOCARDIAL INFARCTION, OF INDETERMINATE AGE) Anesthesia Exam Vital Signs/O2 Sat, Most Current Temp Pulse Resp BP Pulse Ox 98.2 F 73 16 142/68 96 01/06/19 11:00 01/06/19 11:00 01/06/19 11:00 01/06/19 11:00 01/06/19 11:00 Height: 5'5''/1.65m Weight: 181 lbs/82.1 kg NPO (# of Hours): 8 Pain Scale: 6 (left hip) Pain Scale Used: Numeric (1 - 10) - HEENT Pupil (Motor): EOMI Mallampati: II Teeth: Missing, Poor dentition Denture Type: Upper: Complete Oral Opening: Greater than 3 - PIT SHOVELER LOC: Oriented PIT SHOVELER Motor: Normal RUE, Normal LUE, Normal RLE, Normal Face, Deficit LLE PIT SHOVELER Sensory: Normal: RUE, LUE, RLE, LLE, Face - Cardiac Rhythm: Regular Murmur: None - Pulmonary Breath Sounds: bilateral Clear Respiratory Effort: Symmetrical Anesthesia Assess/Plan ASA Score: 2 Level of consciousness: Cooperative, Oriented, Tranquil Anesthetic Plan: General Monitoring Plan: Standard Monitors Recovery Plan: PACU
[2019-01-06] MEDS ORDERED: Scopolamine Patch 1.5 MG PATCH.TD72 ONE (15:09)
[2019-01-06] MEDS ORDERED: EPHEDrine 50 MG/ML VIAL ONE (15:30)
[2019-01-06] MEDS ORDERED: Ondansetron 4 MG/2 ML VIAL ONE (15:39)
[2019-01-06] MEDS ORDERED: Dexamethasone 4 MG/ML VIAL ONE (15:39)
--- NOTE | 2019-01-06 16:43 | Orthopedic Operative Note ---
Date of procedure: 01/06/19 Procedure: OPERATIVE REPORT SURGEON: Nikita Shoemaker MD PREOPERATIVE DIAGNOSIS: Left valgus impacted femoral neck fracture POSTOPERATIVE DIAGNOSIS: Same PROCEDURE: Percutaneous screw fixation of the left femoral neck ANESTHESIA: Gen. anesthesia IMPLANTS: Synthes 7.3 mm partially threaded cannulated screws 3 PREOPERATIVE NOTE The surgical plan was reviewed with the patient. The risks, benefits, alternatives, and potential complications of this procedure were discussed with the patient including injury to veins, arteries, nerves, tendons, ligaments, and bone. Also discussed were the risks of infection, bleeding, pain, blood clots, the possible need for a blood transfusion, the possible need for further procedures, heart attack, stroke, and . Additional risks include malunion, nonunion, avascular necrosis, the need for hardware removal, and the need for prosthetic replacement. All of this was explained in simple terms, and the patient verbalized understanding and wished to proceed. Consent was given to proceed with surgery. PROCEDURE: The patient was seen in the preoperative holding area where the identify and the consent were confirmed. The left hip was marked. Final questions were answered. The patient was brought back to the operating room. A huddle was per formed with the patient and all vital surgical team members confirming patient identity, the correct procedure, and the correct operative site. General anesthesia was administered. She was then placed supine on the operating room table. The right lower extremity was flexed out of the way. X-rays confirmed no displacement of the fracture. The operative extremity was prepped and draped in the usual sterile fashion. A surgical time out was performed immediately preceding the incision with all personnel in the operating room to confirm patient identity, the correct operative site and extremity, correct radiographic studies, availability of appropriate surgical equipment, and agreement on the planned procedure. A 1 cm longitudinal incision was made and the first guidewire was placed in the inferior position and driven into the femoral head. This was measured, overdrilled, and the definitive screw placed with good purchase. The K wire was withdrawn and an anterior superior and anterior posterior screw were placed in similar fashion. This was also with good purchase. X-rays confirmed good position of the screws and no displacement of the fracture throughout multiple views. The wound was copiously irrigated and a single 3-0 Vicryl stitch was placed followed by fernando. The patient was taken off the traction table and placed on her bed in good condition. The instrument, sponge, and needle counts were correct after wound closure. POST OPERATIVE PLAN: 2 weeks for staple removal. Therapy while in the hospital. Was there an fitness assistant present: No Estimated blood loss (cc): 30
[2019-01-06] MEDS ORDERED: *HR* HYDROmorphone (PF) 1 MG/ML SYRINGE IVP ONE (17:37)
[2019-01-06] MEDS ORDERED: *HR* HYDROmorphone (PF) 1 MG/ML SYRINGE IVP PRN ×2 (17:37)
[2019-01-06] MEDS ORDERED: traZODone 50 MG TABLET PO SCH (21:00)
[2019-01-06] MEDS: *HR* Acetaminophen w/Cod 300-30 mg 1 TAB TABLET PO PRN (21:08)
[2019-01-06] MEDS: *HR* OxyCODONE Immed Rel 5 MG TABLET PO PRN (23:05)
[2019-01-06] MEDS: traZODone 50 MG TABLET PO SCH (23:05)
--- NOTE | 2019-01-07 01:36 | Anesthesia Evaluation Post Op ---
Date of Encounter: 01/06/19 Time of Encounter: 14:30 - Vital Signs Vital Signs: Vital Signs Temp Pulse Resp BP Pulse Ox 01/06/19 17:40 98.2 F 87 13 138/71 98 01/06/19 17:31 98.2 F 86 16 133/70 96 01/06/19 17:21 98.2 F 84 13 140/73 98 01/06/19 17:11 87 16 114/62 98 01/06/19 17:01 98.6 F 84 14 145/72 96 01/06/19 16:51 85 16 144/69 97 01/06/19 16:41 78 16 149/71 94 01/06/19 16:31 97.6 F 91 16 127/69 97 01/06/19 11:00 98.2 F 73 16 142/68 96 01/06/19 06:39 98.4 F 67 16 138/67 95 01/06/19 04:03 98.5 F 68 18 133/66 93 Intake and Output 01/06/19 01/06/19 01/07/19 15:59 23:59 07:59 Intake Total 1000 / 1000 Output Total 200 / 930 730 / 930 Balance 800 / 70 -730 / 70 Intake: IV Fluids 1000 / 1000 0.9 % Sodium Chloride 1,000 ML 1000 / 1000 @ 125 mls/hr IVC .Q8H [facility] Rx#: [id number] Output: Urine 700 / 700 Estimated Blood Loss 30 / 30 Catheter 200 / 200 Other: Weight 82 kg - Lungs Lungs: Clear Ascult./Percussion - Airway Airway: Non-obstructed - Cardiovascular Regular Rate - Mental Status Mental Status: Alert & Oriented, Answers Appropriately - Pain Pain Scale: 1 (reports "8/10" resting comforably) Pain Scale used: Mike-Kim (Faces) - Nausea Vomiting Nausea Vomiting: Not Present - Hydration Hydration: Ice chips - Discharge PostOp Status: Transfer Patient to floor Anes Supervising Prov Stmt: Pt seen/evaluated, VSS and has met criteria for discharge to floor. - MD Miranda
[2019-01-07] MEDS ORDERED: *HR* Enoxaparin 40 MG/0.4 ML SYRINGE SQ SCH (06:00)
[2019-01-07 06:04] LABS: Basophils % 0.2 %; Hematocrit 35.1 % (35.3-44.9); Hemoglobin 11.7 g/dL (11.5-15.4); Immature Granulocytes % 0.4 % (0-4); Lymphocytes # 0.4 K/mcL (0.6-4.6); Lymphocytes % 4.7 %; Mean Corpuscular HGB Conc 33.3 g/dL (31.6-35.5); Mean Corpuscular Volume 93.1 fL (83.0-100.0); Mean Platelet Volume 10.8 fL (9.4-12.4); Monocytes # 0.3 K/mcL (0.0-1.3); Monocytes % 3.2 %; Neutrophils # 7.4 K/mcL (1.6-8.9); Platelet Count 140 K/mcL (140-400); Red Blood Count 3.77 M/mcL (3.82-4.97); Red Cell Distribution Width 12.9 % (11.5-14.5); Segmented Neutrophils % 91.5 %
[2019-01-07 06:22] LABS: BUN/Creatinine Ratio 14 (6-26); Blood Urea Nitrogen 13 mg/dL (8-23); Calcium 8.7 mg/dL (8.6-10.3); Carbon Dioxide 28 mEq/L (23-29); Chloride 104 mEq/L (98-107); Glucose 170 mg/dL (70-105); Osmolality,Calculated 292 (280-300); Potassium 3.8 mEq/L (3.5-5.1); Sodium 139 mEq/L (136-145); eGFR For African Americans > 60 (> 60); eGFR For Non-African Americans > 60 (> 60)
--- NOTE | 2019-01-07 07:09 | Orthopedics Progress Note ---
Date of Encounter: 01/07/19 Time of Encounter: 07:07 Subjective Interval history: S: Resting comfortably in bed without any new complaints. Pain control to left hip. O: Afebrile on the vital signs are stable Left hip dressing is clean, dry, and intact. No significant pain with passive motion the left hip She can dorsiflex and plantar flex ankle and toes and the foot is sensate and well-perfused A: Left hip pinning P: Resume postoperative care Weightbearing as tolerated on the left lower extremity though I did indicate for her to allow pain to be her guide and to use a walker. Physical therapy work with the patient today. Olvera out today. Aspirin 325 mg by mouth daily for DVT prophylaxis. She did get a dose of Lovenox this morning so we will hold the aspirin for today, but resume aspirin upon discharge. Follow-up with me in 2 weeks for a repeat x-ray of the left hip. Objective Vital signs: Vital Signs Temp Pulse Resp BP Pulse Ox 01/07/19 04:23 98.8 F 69 17 108/62 96 01/07/19 00:51 8 85 01/06/19 23:42 98.4 F 75 16 107/61 90 01/06/19 22:30 97.6 F 79 16 118/54 98 01/06/19 21:35 98.0 F 86 16 126/68 01/06/19 20:03 98.2 F 16 120/68 95 01/06/19 19:10 98.4 F 91 16 117/62 96 01/06/19 17:40 98.2 F 87 13 138/71 98 01/06/19 17:31 98.2 F 86 16 133/70 96 01/06/19 17:21 98.2 F 84 13 140/73 98 01/06/19 17:11 87 16 114/62 98 01/06/19 17:01 98.6 F 84 14 145/72 96 01/06/19 16:51 85 16 144/69 97 01/06/19 16:41 78 16 149/71 94 01/06/19 16:31 97.6 F 91 16 127/69 97 01/06/19 11:00 98.2 F 73 16 142/68 96 Intake and Output 01/06/19 01/06/19 01/07/19 15:59 23:59 07:59 Intake Total 1000 / 1000 Output Total 200 / 930 730 / 930 150 / 150 Balance 800 / 70 -730 / 70 -150 / -150 Intake: IV Fluids 1000 / 1000 0.9 % Sodium Chloride 1,000 ML 1000 / 1000 @ 125 mls/hr IVC .Q8H [facility] Rx#: [id number] Output: Urine 700 / 700 Estimated Blood Loss 30 / 30 Catheter 200 / 200 150 / 150 Other: Weight 82 kg - Labs CBC & BMP: 01/07/19 04:17 01/07/19 04:17 Labs: Abnormal lab results RBC 3.77 M/mcL (3.82-4.97) L 01/07/19 04:17 Hct 35.1 % (35.3-44.9) L 01/07/19 04:17 0.4 K/mcL (0.6-4.6) L 01/07/19 04:17 Carbon Dioxide 31 mEq/L (23-29) H 01/06/19 04:22 Glucose 170 mg/dL (70-105) H 01/07/19 04:17 1.3 mg/dL (0.3-1.0) H 01/06/19 04:22 AST 136 Units/L (13-39) H 01/06/19 04:22 ALT 91 Units/L (7-52) H 01/06/19 04:22 5.9 g/dL (6.4-8.9) L 01/06/19 04:22 2.1 g/dL (2.4-3.5) L 01/06/19 04:22 61 mg/dL (40-59) H 01/06/19 04:22 Cloudy (Clear) A 01/06/19 01:29 Ur Squamous Epith Cells Many per lpf (None-Few) H 01/06/19 01:29 Moderate (Few) H 01/06/19 01:29 Consult Discharge Plan - Plan Additional Instructions: CUSTODIAL DISCHARGE INSTRUCTIONS Dr. Shoemaker PROCEDURE PERFORMED Reduction and fixation of left hip. Incision care -Daily dressing changes to the left hip with dry gauze and either paper tape or medipore tape. -Avoid soaking wound in water (no hot tubs, bathtubs, swimming pools). -May shower after 2 weeks from surgery date. Carefully wash incision with soap and water. Gently pat it dry. Don't rub the incision, or apply creams or lotions. Sit on a shower stool when showering to keep from falling. Weight bearing status -Weightbearing as tolerated to the bilateral lower extremities, though let pain be her guide. Medications -Pain medication per the discharging medical doctor -Enteric coated aspirin 325 mg by mouth daily for 28 days from the date of the surgery. Other -Knee high LOUISE hose 23 hours per day -Consult physical and occupational therapy for mobilization. -Up to chair with assistance at least twice per day. -Follow up with your primary care physician to discuss testing for bone mineral density. Follow-up with Dr. Shoemaker at the office 2 weeks from the surgery date for a post operative evaluation. Call the office at [phone] to schedule appointment. Referrals: Kerry Oseguera CNP [Primary Care Provider] -
[2019-01-07] MEDS: Valsartan 80 MG TABLET PO SCH (09:09)
[2019-01-07] MEDS: *HR* OxyCODONE Immed Rel 5 MG TABLET PO PRN ×2 (09:11→17:23)
[2019-01-07] MEDS: amLODIPine 5 MG TABLET PO SCH (09:19)
[2019-01-07] MEDS: *HR* Acetaminophen w/Cod 300-30 mg 1 TAB TABLET PO PRN (13:49)
--- NOTE | 2019-01-07 15:17 | Internal Med Progress Note ---
Hospitalist Progress Note - Encounter Date of Encounter: 01/07/19 Time of Encounter: 15:14 - Subjective Interval History: Evaluated patient earlier today. Was getting ready to work with physical therapy. Continues to have pain in left hip but much improved since her surgery yesterday afternoon. Tolerating oral diet well. - Exam Vitals: Temp Pulse Resp BP Pulse Ox 98 F 78 16 107/68 85 01/07/19 10:00 01/07/19 10:00 01/07/19 10:00 01/07/19 10:00 01/07/19 12:00 Exam: General: Patient is alert, no acute distress, oriented x 3 Respiratory: Good respiratory effort. Normal breath sounds. No wheezing or crackles. Cardiovascular: Regular rate and rhythm. s1 and s2 normal No clicks, rubs, gallops, or murmurs. No pedal edema Abdomen: Abdomen is soft, nontender. Bowel sounds are present Musculoskeletal: Tenderness of left hip region Skin: warm, dry, intact. Neuro: Alert oriented x 3 normal cranial nerves, no focal deficits - Assessment and Plan (1) Fracture of femur Current Visit: Yes Status: Acute (2) Hypertension Current Visit: Yes Status: Acute (3) Hyperlipidemia Current Visit: Yes Status: Acute (4) Hypothyroidism Current Visit: Yes Status: Acute (5) DVT prophylaxis Current Visit: Yes Status: Acute DVT Prophylaxis: On aspirin 325 mg daily per orthopedic recommendations - Summary of Assessment and Plan Summary of Assessment and Plan: Acute subcapital left femur fracture: Status post percutaneous screw fixation of the left femoral neck. Postop day 1. Continue physical therapy. Plan to discharge patient home with home health tomorrow. Pain control. Essential hypertension: Blood pressure is well controlled. Intractable headache: Tension-type. Improved.. Hypothyroidism: Continue levothyroxine. Moderate risk for complications. - Time Spent with Patient Total time spent is greater than 50% in coordination of care (as documented) at patient's floor/unit and/or counseling patient: Internal Medicine: Result - Labs CBC & Chem 7: 01/07/19 04:17 01/07/19 04:17 Labs: Short CBC 01/07/19 Range/Units 04:17 WBC 8.0 (4.3-11.1) K/mcL Hgb 11.7 (11.5-15.4) g/dL Hct 35.1 L (35.3-44.9) % Plt Count 140 (140-400) K/mcL Neutrophils # 7.4 (1.6-8.9) K/mcL BMP 01/07/19 04:17 Sodium 139 Potassium 3.8 Chloride 104 Carbon Dioxide 28 BUN 13 Creatinine 0.91 Glucose 170 H Calcium 8.7 - ABG Interpretation ABG results: PT/INR, D-dimer PT 11.7 Seconds (9.4-12.1) 01/06/19 04:22 - Impressions Impressions Fluoroscopy 01/06/19 00:00 IMPRESSION: Intraprocedural fluoroscopic spot images as above. See separate procedure report for more information. D/ / 01/06/2019 16:20:08 Jack Pineda MD / steven Interpreting Provider: Jack Pineda MD Hip X-Ray 01/06/19 00:00 IMPRESSION: Intraprocedural fluoroscopic spot images as above. See separate procedure report for more information. D/ / 01/06/2019 16:20:08 Jack Pineda MD / steven Interpreting Provider: Jack Pineda MD Consult Discharge Plan - Plan Additional Instructions: CARE HOME DISCHARGE INSTRUCTIONS Dr. Shoemaker PROCEDURE PERFORMED Reduction and fixation of left hip. Incision care -Daily dressing changes to the left hip with dry gauze and either paper tape or medipore tape. -Avoid soaking wound in water (no hot tubs, bathtubs, swimming pools). -May shower after 2 weeks from surgery date. Carefully wash incision with soap and water. Gently pat it dry. Don't rub the incision, or apply creams or lotions. Sit on a shower stool when showering to keep from falling. Weight bearing status -Weightbearing as tolerated to the bilateral lower extremities, though let pain be her guide. Medications -Pain medication per the discharging medical doctor -Enteric coated aspirin 325 mg by mouth daily for 28 days from the date of the surgery. Other -Knee high LOUISE hose 23 hours per day -Consult physical and occupational therapy for mobilization. -Up to chair with assistance at least twice per day. -Follow up with your primary care physician to discuss testing for bone mineral density. Follow-up with Dr. Shoemaker at the office 2 weeks from the surgery date for a post operative evaluation. Call the office at [phone] to schedule appointment. Referrals: Kerry Oseguera, [employer]O JOB ESTIMATOR [Primary Care Provider] - (1) Fracture of femur Qualifiers: Encounter type: initial encounter Femur location: neck, unspecified portion Fracture type: closed Laterality: left Qualified Code(s): S72.002A - Fracture of unspecified part of neck of left femur, initial encounter for closed fracture
[2019-01-07] MEDS: traZODone 50 MG TABLET PO SCH (20:05)
[2019-01-07] MEDS ORDERED: Acetaminophen 325 MG TABLET PO ONE (23:15)
[2019-01-08 05:34] LABS: Basophils % 0.3 %; Eosinophils # 0.2 K/mcL (0.0-0.6); Hematocrit 32.1 % (35.3-44.9); Hemoglobin 10.6 g/dL (11.5-15.4); Immature Granulocytes % 0.4 % (0-4); Lymphocytes # 1.2 K/mcL (0.6-4.6); Mean Corpuscular Hemoglobin 30.6 pg (28.0-33.3); Mean Corpuscular Volume 92.8 fL (83.0-100.0); Mean Platelet Volume 10.1 fL (9.4-12.4); Monocytes # 0.4 K/mcL (0.0-1.3); Monocytes % 6.2 %; Platelet Count 114 K/mcL (140-400); Red Blood Count 3.46 M/mcL (3.82-4.97); Red Cell Distribution Width 13.1 % (11.5-14.5); Segmented Neutrophils % 73.1 %; White Blood Count 6.9 K/mcL (4.3-11.1)
[2019-01-08 05:53] LABS: BUN/Creatinine Ratio 17 (6-26); Blood Urea Nitrogen 14 mg/dL (8-23); Calcium 8.8 mg/dL (8.6-10.3); Carbon Dioxide 34 mEq/L (23-29); Chloride 103 mEq/L (98-107); Glucose 125 mg/dL (70-105); Osmolality,Calculated 294 (280-300); Potassium 3.7 mEq/L (3.5-5.1); Sodium 141 mEq/L (136-145); eGFR For African Americans > 60 (> 60); eGFR For Non-African Americans > 60 (> 60)
--- NOTE | 2019-01-08 07:20 | Orthopedics Progress Note ---
Date of Encounter: 01/08/19 Time of Encounter: 07: Subjective Interval history: S: Resting comfortably in bed without any new complaints. Pain control to left hip. O: Afebrile on the vital signs are stable Hip wound is clean, dry, intact. No significant pain with passive motion the left hip She can dorsiflex and plantar flex ankle and toes and the foot is sensate and well-perfused A: Left hip pinning P: Resume postoperative care Weightbearing as tolerated on the left lower extremity though I did indicate for her to allow pain to be her guide and to use a walker. Physical therapy work with the patient today. ASA 325 PO QD for DVT prophylaxis Follow up in 2 weeks after surgery for post op evaluation and xrays.. Objective Vital signs: Vital Signs Temp Pulse Resp BP Pulse Ox 01/08/19 06:49 98.8 F 57 16 144/71 89 01/08/19 05:27 98.9 F 66 18 140/70 91 01/08/19 03:06 90 01/08/19 00:38 95 01/07/19 23:32 101.6 F H 72 16 138/70 96 01/07/19 22:05 20 90 01/07/19 20:17 82 01/07/19 18:15 98.3 F 94 17 126/65 91 01/07/19 14:39 98.2 F 81 16 112/64 93 01/07/19 12:00 85 01/07/19 10:00 98 F 78 16 107/68 87 01/07/19 09:25 95 Intake and Output 01/07/19 01/07/19 01/08/19 15:59 23:59 07:59 Intake Total 200 / 200 Balance 200 / 200 Intake: Oral 200 / 200 Other: # Voids 1 1 1 - Labs CBC & BMP: 01/08/19 05:23 01/08/19 05:23 Labs: Abnormal lab results RBC 3.46 M/mcL (3.82-4.97) L 01/08/19 05:23 Hgb 10.6 g/dL (11.5-15.4) L 01/08/19 05:23 Hct 32.1 % (35.3-44.9) L 01/08/19 05:23 Plt Count 114 K/mcL (140-400) L 01/08/19 05:23 Lymphocytes # 0.4 K/mcL (0.6-4.6) L 01/07/19 04:17 Carbon Dioxide 34 mEq/L (23-29) H 01/08/19 05:23 Glucose 125 mg/dL (70-105) H 01/08/19 05:23 Total Bilirubin 1.3 mg/dL (0.3-1.0) H 01/06/19 04:22 AST 136 Units/L (13-39) H 01/06/19 04:22 ALT 91 Units/L (7-52) H 01/06/19 04:22 Serum Total Protein 5.9 g/dL (6.4-8.9) L 01/06/19 04:22 Globulin 2.1 g/dL (2.4-3.5) L 01/06/19 04:22 HDL Cholesterol 61 mg/dL (40-59) H 01/06/19 04:22 Urine Clarity Cloudy (Clear) A 01/06/19 01:29 Ur Squamous Epith Cells Many per lpf (None-Few) H 01/06/19 01:29 Urine Mucus Moderate (Few) H 01/06/19 01:29 Consult Discharge Plan - Plan Additional Instructions: [facility] DISCHARGE INSTRUCTIONS Dr. Shoemaker PROCEDURE PERFORMED Reduction and fixation of left hip. Incision care -Daily dressing changes to the left hip with dry gauze and either paper tape or medipore tape. -Avoid soaking wound in water (no hot tubs, bathtubs, swimming pools). -May shower after 2 weeks from surgery date. Carefully wash incision with soap and water. Gently pat it dry. Don't rub the incision, or apply creams or lotions. Sit on a shower stool when showering to keep from falling. Weight bearing status -Weightbearing as tolerated to the bilateral lower extremities, though let pain be her guide. Medications -Pain medication per the discharging medical doctor -Enteric coated aspirin 325 mg by mouth daily for 28 days from the date of the surgery. Other -Knee high LOUISE hose 23 hours per day -Consult physical and occupational therapy for mobilization. -Up to chair with assistance at least twice per day. -Follow up with your primary care physician to discuss testing for bone mineral density. Follow-up with Dr. Shoemaker at the office 2 weeks from the surgery date for a post operative evaluation. Call the office at [phone] to schedule appointment. Referrals: Kerry Oseguera, MICHAEL [Primary Care Provider] -
[2019-01-08] MEDS: Aspirin Enteric Coated 325 MG Tablet PO SCH (08:04)
[2019-01-08] MEDS: amLODIPine 5 MG TABLET PO SCH (08:04)
[2019-01-08] MEDS: Valsartan 80 MG TABLET PO SCH (08:04)
[2019-01-08 08:05] LABS: Estimated Average Glucose 111 mg/dl
[2019-01-08] MEDS: *HR* OxyCODONE Immed Rel 5 MG TABLET PO PRN ×3 (09:18→19:03)
[2019-01-08] MEDS ORDERED: Furosemide 40 MG/4 ML VIAL IVP ONE (12:19)
[2019-01-08] MEDS ORDERED: Isovue-370 500 ML BOTTLE IVP ONE (16:28)
--- NOTE | 2019-01-08 16:43 | Internal Med Progress Note ---
Hospitalist Progress Note - Encounter Date of Encounter: 01/08/19 Time of Encounter: 16:41 - Subjective Interval History: Evaluated patient earlier today. Patient was hypoxic last night with sats going down to 70% especially while lying down. She does have a history of sleep apnea but does not use CPAP as she is not comfortable with the mask. She denies any chest pain or palpitations. Patient does have a history of sinusitis and usually breathes with her mouth often. She also reports sputum production. No fever or chills reported overnight - Exam Vitals: Temp Pulse Resp BP Pulse Ox 98.2 F 65 16 134/70 91 01/08/19 15:36 01/08/19 15:36 01/08/19 15:36 01/08/19 15:36 01/08/19 15:36 Exam: General: Patient is alert, no acute distress, oriented x 3 Respiratory: Good air entry overall but diminished breath sounds at both bases Cardiovascular: Regular rate and rhythm. s1 and s2 normal No clicks, rubs, gallops, or murmurs. No pedal edema Abdomen: Abdomen is soft, nontender. Bowel sounds are present Musculoskeletal: Tenderness at left hip region Skin: warm, dry, intact. Neuro: Alert oriented x 3 normal cranial nerves, no focal deficits - Assessment and Plan (1) Fracture of femur Current Visit: Yes Status: Acute (2) DVT prophylaxis Current Visit: Yes Status: Acute (3) Hypertension Current Visit: Yes Status: Acute (4) Hyperlipidemia Current Visit: Yes Status: Acute (5) Hypothyroidism Current Visit: Yes Status: Acute DVT Prophylaxis: On aspirin 325 mg daily per orthopedic recommendations - Summary of Assessment and Plan Summary of Assessment and Plan: Acute hypoxic respiratory failure: Chest x-ray done shows pulmonary congestion. Treat the patient's BNP is also elevated. Obtain 2-D echocardiogram. Lasix ordered. We will also rule out PE with CT angiogram. Continue O2 supplementation. Pro calcitonin as her normal suggesting no infection. Acute subcapital left femur fracture: Status post percutaneous screw fixation of the left femoral neck. Postop day 2. Continue physical therapy. Home health when patient is stable for discharge. Essential hypertension: Blood pressure is well controlled. Intractable headache: Resolved. Hypothyroidism: Continue levothyroxine. Moderate risk for complications. - Time Spent with Patient Total time spent is greater than 50% in coordination of care (as documented) at patient's floor/unit and/or counseling patient: Internal Medicine: Result - Labs CBC & Chem 7: 01/08/19 05:23 01/08/19 05:23 Labs: Short CBC 01/08/19 Range/Units 05:23 WBC 6.9 (4.3-11.1) K/mcL Hgb 10.6 L (11.5-15.4) g/dL Hct 32.1 L (35.3-44.9) % Plt Count 114 L (140-400) K/mcL Neutrophils # 5.0 (1.6-8.9) K/mcL BMP 01/08/19 05:23 Sodium 141 Potassium 3.7 Chloride 103 Carbon Dioxide 34 H BUN 14 Creatinine 0.81 Glucose 125 H Calcium 8.8 - ABG Interpretation ABG results: PT/INR, D-dimer PT 11.7 Seconds (9.4-12.1) 01/06/19 04:22 - Impressions Impressions Chest X-Ray 01/08/19 06:10 IMPRESSION: Mild pulmonary vascular congestion. D/ / J Luis Samaniego MD / J Luis Samaniego MD Interpreting Provider: J Luis Samaniego MD Consult Discharge Plan - Plan Additional Instructions: CARE HOME DISCHARGE INSTRUCTIONS Dr. Shoemaker PROCEDURE PERFORMED Reduction and fixation of left hip. Incision care -Daily dressing changes to the left hip with dry gauze and either paper tape or medipore tape. -Avoid soaking wound in water (no hot tubs, bathtubs, swimming pools). -May shower after 2 weeks from surgery date. Carefully wash incision with soap and water. Gently pat it dry. Don't rub the incision, or apply creams or lotions. Sit on a shower stool when showering to keep from falling. Weight bearing status -Weightbearing as tolerated to the bilateral lower extremities, though let pain be her guide. Medications -Pain medication per the discharging medical doctor -Enteric coated aspirin 325 mg by mouth daily for 28 days from the date of the surgery. Other -Knee high LOUISE hose 23 hours per day -Consult physical and occupational therapy for mobilization. -Up to chair with assistance at least twice per day. -Follow up with your primary care physician to discuss testing for bone mineral density. Follow-up with Dr. Shoemaker at the office 2 weeks from the surgery date for a post operative evaluation. Call the office at [phone] to schedule appointment. Referrals: Kerry Oseguera, MARKETING INTELLIGENCE ANALYST [Primary Care Provider] - (1) Fracture of femur Qualifiers: Encounter type: initial encounter Femur location: neck, unspecified portion Fracture type: closed Laterality: left Qualified Code(s): S72.002A - Fracture of unspecified part of neck of left femur, initial encounter for closed fracture (3) Hypertension Qualifiers: Qualified Code(s): I10 - Essential (primary) hypertension (4) Hyperlipidemia Qualifiers: Qualified Code(s): E78.5 - Hyperlipidemia, unspecified (5) Hypothyroidism Qualifiers: Qualified Code(s): E03.9 - Hypothyroidism, unspecified
[2019-01-08] MEDS ORDERED: Furosemide 20 MG/2 ML VIAL IVP SCH (17:30)
[2019-01-08] MEDS: traZODone 50 MG TABLET PO SCH (20:34)
[2019-01-08] MEDS: Furosemide 20 MG/2 ML VIAL IVP SCH (20:34)
[2019-01-09 02:06] LABS: BUN/Creatinine Ratio 13 (6-26); Blood Urea Nitrogen 12 mg/dL (8-23); Calcium 8.9 mg/dL (8.6-10.3); Carbon Dioxide 38 mEq/L (23-29); Chloride 96 mEq/L (98-107); Glucose 119 mg/dL (70-105); Osmolality,Calculated 293 (280-300); Potassium 3.3 mEq/L (3.5-5.1); Sodium 141 mEq/L (136-145); eGFR For African Americans > 60 (> 60); eGFR For Non-African Americans > 60 (> 60)
[2019-01-09 07:47] VITALS: BP 128/73
[2019-01-09] MEDS: Furosemide 20 MG/2 ML VIAL IVP SCH (08:34)
[2019-01-09] MEDS: Valsartan 80 MG TABLET PO SCH (08:34)
[2019-01-09] MEDS: Aspirin Enteric Coated 325 MG Tablet PO SCH (08:34)
[2019-01-09] MEDS: amLODIPine 5 MG TABLET PO SCH (08:35)
[2019-01-09] MEDS: *HR* OxyCODONE Immed Rel 5 MG TABLET PO PRN (08:39)
[2019-01-09] MEDS ORDERED: Fluticasone Propionate Nasal 50 MCG/SPRAY BOTTLE NS SCH (09:00)
--- NOTE | 2019-01-09 11:45 | Discharge Summary ---
- NOTES TO OUTPATIENT PROVIDER Notes to Outpatient Provider: Patient with a history of hypertension, hyperlipidemia, osteoporosis who was hospitalized here after a fall resulting in acute left subcapital femoral neck fracture. She was evaluated by orthopedics and recommended surgery for this. She underwent percutaneous screw fixation of the left femoral neck on 01/06. Since then she has been recovering well with regards to her left hip. However patient has been hypoxic especially while lying down. Chest x-ray showed some pulmonary congestion and patient received IV Lasix. 2-D echocardiogram was done which showed EF of 65-70% with mild pulmonary hypertension. Patient does have a history of sleep apnea. She would benefit from home oxygen to help treat her hypoxemia. This will be prescribed for her discharge. She has been evaluated by physical therapy and recommended placement to skilled rehabilitation. CT angiogram of the chest was done which did not show any PE. Patient does have the selected cases which could also be contributing to her hypoxemia. She is advised to continue using incentive spirometry. Date of Encounter: 01/09/19 Time of Encounter: 11:42 - Discharge Diagnosis (1) Fracture of femur Priority: Primary Status: Acute Qualifiers: Encounter type: initial encounter Femur location: neck, unspecified portion Fracture type: closed Laterality: left Qualified Code(s): S72.002A - Fracture of unspecified part of neck of left femur, initial encounter for closed fracture (2) Acute respiratory failure with hypoxia Priority: Secondary Status: Acute (3) Hypertension Priority: Secondary Status: Acute Qualifiers: Qualified Code(s): I10 - Essential (primary) hypertension (4) Hyperlipidemia Priority: Secondary Status: Acute Qualifiers: Qualified Code(s): E78.5 - Hyperlipidemia, unspecified (5) Hypothyroidism Priority: Secondary Status: Acute Qualifiers: Qualified Code(s): E03.9 - Hypothyroidism, unspecified (6) DVT prophylaxis Priority: Secondary Status: Acute (7) Obstructive sleep apnea Priority: Secondary Status: Acute Hospital course: Ms. Song is a 63 year old female Patient with a history of hypertension, hyperlipidemia, osteoporosis who was hospitalized here after a fall resulting in acute left subcapital femoral neck fracture. She was evaluated by orthopedics and recommended surgery for this. She underwent percutaneous screw fixation of the left femoral neck on 01/06. Since then she has been recovering well with regards to her left hip. However patient has been hypoxic especially while lying down. Chest x-ray showed some pulmonary congestion and patient received IV Lasix. 2-D echocardiogram was done which showed EF of 65-70% with mild pulmonary hypertension. Patient does have a history of sleep apnea. She would benefit from home oxygen to help treat her hypoxemia. This will be prescribed for her discharge. She has been evaluated by physical therapy and recommended placement to skilled rehabilitation. CT angiogram of the chest was done which did not show any PE. Patient does have the selected cases which could also be contributing to her hypoxemia. She is advised to continue using incentive spirometry. Discharge discussed with: patient - Time Spent with Patient Total time spent providing and/or coordinating discharge services: Time spent: Greater than 30 minutes (45 min) - Discharge Medications Prescriptions: New OxyCODONE Immed Rel [Roxicodone 5 MG] 1 - 2 tab PO Q6HR PRN 7 Days #25 tablet PRN Reason: Moderate to Severe pain Aspirin Enteric Coated [Aspirin EC] 325 mg PO DAILY #30 tablet.dr Brown diazePAM [Valium] 5 mg PO BID PRN 3 Days #7 tablet PRN Reason: Pain BuPROPion SR (12 HR) [Wellbutrin SR] 200 mg PO QAM #0 amLODIPine [Norvasc] 10 mg PO DAILY Escitalopram [Lexapro] 20 mg PO DAILY Levothyroxine Sodium 112 mcg PO QAM Buspirone HCl [Buspar] 22.5 mg PO DAILY Trazodone HCl 100 mg PO HS PRN PRN Reason: Sleep Home Medications: diazePAM [Valium] 5 mg PO BID PRN 3 Days #7 tablet 12/08/17 [Rx] BuPROPion SR (12 HR) [Wellbutrin SR] 200 mg PO QAM #0 05/20/18 [History] Escitalopram [Lexapro] 20 mg PO DAILY 01/05/19 [History] amLODIPine [Norvasc] 10 mg PO DAILY 01/05/19 [History] Buspirone HCl [Buspar] 22.5 mg PO DAILY 01/07/19 [History] Levothyroxine Sodium 112 mcg PO QAM 01/07/19 [History] Trazodone HCl 100 mg PO HS PRN 01/07/19 [History] Aspirin Enteric Coated [Aspirin EC] 325 mg PO DAILY #30 tablet. 01/09/19 [Rx] OxyCODONE Immed Rel [Roxicodone 5 MG] 1 - 2 tab PO Q6HR PRN 7 Days #25 tablet 01/09/19 [Rx] Allergies/Adverse Reactions: Allergy/AdvReac Type Severity Reaction Status Date / Time clonazepam [From Klonopin] Allergy Anxiety Verified 01/07/19 10:20 atorvastatin [From Lipitor] AdvReac See Verified 01/07/19 10:20 Comments moxifloxacin [From Avelox] AdvReac Rash Verified 01/07/19 10:20 Date of admission: 01/07/19 11:07 Primary care physician: Kerry Oseguera CNP Consults: 01/05/19 19:37 Consult to Orthopedic Surgery [CONS] Stat Consulting Provider: Orthopedic and Sports Medicine Reason for Consult: left fem nec fracture Call Completed: Yes 01/05/19 23:05 Consult to Nutrition [CONS] Routine Comment: Consulting Provider: NUTRITION Reason for Dietary Consult: Other Other:: weight loss, decreased appetite Consult to [employer] [CONS] Routine Reason for SW Consult: possible rehab placement 01/06/19 17:37 Consult to Occupational Therapy [CONS] Routine Comment: Evaluate, develop and implement POC Reason for Consult: post hip surgery Does patient have active BEDREST order?: No Is patient medically & hemodynamically stable?: Yes Consult to Physical Therapy [CONS] Routine Comment: Evaluate, develop and implement POC Reason for Consult: post hip surgery Does patient have active BEDREST order?: No Is patient medically & hemodynamically stable?: Yes Discharging clinician: Rena Aguilar Anticipated date of discharge: 01/09/19 - Constitutional Vitals: Temp Pulse Resp BP Pulse Ox 98.6 F 71 16 128/73 94 01/09/19 07:47 01/09/19 07:47 01/09/19 07:47 01/09/19 07:47 01/09/19 07:47 General appearance: Present: A&O X 3 Exam: General: Patient is alert, no acute distress, oriented x 3 Respiratory: Dry crackles at both bases Cardiovascular: Regular rate and rhythm. s1 and s2 normal No clicks, rubs, gallops, or murmurs. No pedal edema Abdomen: Abdomen is soft, nontender. Bowel sounds are present Musculoskeletal: Spontaneously moving all extremities , left hip tenderness Skin: warm, dry, intact. Neuro: Alert oriented x 3 normal cranial nerves, no focal deficits - Patient Status Disposition: Home Health Service Condition: Good Functional capacity at discharge: uses cane/walker Overall status at discharge: patient is progressing back to baseline - Discharge Instructions Instructions: Chronic Hypertension (DC) Follow Up With: Kerry Oseguera CNP [Primary Care Provider] - (in 1 week) Nikita Shoemaker MD [Partnered Physician] - (in 1 week) Additional Instructions: DISCHARGE INSTRUCTIONS Dr. Shoemaker PROCEDURE PERFORMED Reduction and fixation of left hip. Incision care -Daily dressing changes to the left hip with dry gauze and either paper tape or medipore tape. -Avoid soaking wound in water (no hot tubs, bathtubs, swimming pools). -May shower after 2 weeks from surgery date. Carefully wash incision with soap and water. Gently pat it dry. Don't rub the incision, or apply creams or lotions. Sit on a shower stool when showering to keep from falling. Weight bearing status -Weightbearing as tolerated to the bilateral lower extremities, though let pain be her guide. Medications -Pain medication per the discharging medical doctor -Enteric coated aspirin 325 mg by mouth daily for 28 days from the date of the surgery. Other -Knee high LOUISE hose 23 hours per day -Consult physical and occupational therapy for mobilization. -Up to chair with assistance at least twice per day. -Follow up with your primary care physician to discuss testing for bone mineral density. Follow-up with Dr. Shoemaker at the office 2 weeks from the surgery date for a post operative evaluation. Call the office at [phone] to schedule appointment. - Diet and Activity Activity: increase activity as tolerated Diet: diabetic diet, low salt diet
--- NOTE | 2019-01-09 11:57 | Physician Discharge Referral ---
Home Health/Hosp Referral Info Transfer to: Home Health Provider in Charge Post Discharge: PCP - Diagnosis (1) Fracture of femur Priority: Primary Status: Acute (2) Acute respiratory failure with hypoxia Priority: Secondary Status: Acute (3) Hypertension Priority: Secondary Status: Acute (4) Hyperlipidemia Priority: Secondary Status: Acute (5) Hypothyroidism Priority: Secondary Status: Acute (6) Obstructive sleep apnea Priority: Secondary Status: Acute (7) Hypoxemia Priority: Secondary Status: Acute (8) Nocturnal hypoxemia Priority: Secondary Status: Acute (9) DVT prophylaxis Priority: Secondary Status: Acute - Respiratory Orders Oxygen / L per min (3) Smoking Cessation: Smoking cessation has been advised. For more information, call the [place] Tobacco Quit Line at 4-392-SVAT-NOW. - Diet/Nutrition Diet/Nutrition Orders: Cardiac - Activity Activity Orders: Walker - Services Needed Following services are medically necessary services: Nursing, Home Health Aide, Physical Therapy, Occupational Therapy - Transfer Medications Prescriptions: Aspirin Enteric Coated [Aspirin EC] 325 mg PO DAILY #30 tablet.dr Ivey 1 each .ROUTE AD #1 each OxyCODONE Immed Rel [Roxicodone 5 MG] 1 - 2 tab PO Q6HR PRN 7 Days #25 tablet PRN Reason: Moderate to Severe pain Home Medications: diazePAM [Valium] 5 mg PO BID PRN 3 Days #7 tablet 12/08/17 [Rx] BuPROPion SR (12 HR) [Wellbutrin SR] 200 mg PO QAM #0 05/20/18 [History] Escitalopram [Lexapro] 20 mg PO DAILY 01/05/19 [History] amLODIPine [Norvasc] 10 mg PO DAILY 01/05/19 [History] Buspirone HCl [Buspar] 22.5 mg PO DAILY 01/07/19 [History] Levothyroxine Sodium 112 mcg PO QAM 01/07/19 [History] Trazodone HCl 100 mg PO HS PRN 01/07/19 [History] Aspirin Enteric Coated [Aspirin EC] 325 mg PO DAILY #30 tablet. 01/09/19 [Rx] OxyCODONE Immed Rel [Roxicodone 5 MG] 1 - 2 tab PO Q6HR PRN 7 Days #25 tablet 01/09/19 [Rx] Oxygen 1 each .ROUTE AD #1 each 01/09/19 [Rx] Allergies/Adverse Reactions: Allergy/AdvReac Type Severity Reaction Status Date / Time clonazepam [From Klonopin] Allergy Anxiety Verified 01/07/19 10:20 atorvastatin [From Lipitor] AdvReac See Verified 01/07/19 10:20 Comments moxifloxacin [From Avelox] AdvReac Rash Verified 01/07/19 10:20 Certification: Further, I certify that my clinical findings support that this patient is homebound (i.e. absences from home require considerable and taxing effort and are for medical reasons or bahai services or infrequently or short duration when for other reasons) because: Homebound Reason: Post-surgery restriction and or conditions limit ability to leave home Attestation: My signature below is to certify that this patient is under my care and that I, or nurse practitioner, or a physician's human resources assistant working with me, has a [id number] encounter with this patient.
== END 2019-01-09 16:00 | disposition home health service (06) | DRG 480 ==
LOC: EMEROOARM 17:03 → 3NENU 17:03 → SUATTDRO 21:22 → 3NENU 22:07
PROVIDERS: ADMIT Internal Medicine Nephrology; ATTEND Internal Medicine